=== PATIENT | male | born 2000 | race Caucasian/White ===

== ENCOUNTER 2021-08-01 19:10 | Emergency (ER) | payer OTHER, SELFPAY ==
--- NOTE | ~2021-08-01 | CT_ITS ---
EXAMINATION: CT abdomen pelvis wo con DATE: 08/01/2021 19:47 INDICATION: Right flank pain TECHNIQUE: Computed tomography (CT) of the abdomen and pelvis was performed without intravenous contr ast. Automated exposure control and iterative reconstruction technique were employed. Exam dose: 654 .96 mGy-cm total exam DLP. COMPARISON: None. FINDINGS: Minimal dependent atelectasis, right lower lobe. Normal heart size. No pericardial or pleur al effusion. The liver, gallbladder, bile ducts, spleen, pancreas, pancreatic duct and adrenal glands are unremark able. No renal mass lesion is evident. There is an approximate 4 x 6 mm proximal right ureteral calculus with mild to moderate right proxima l hydroureteronephrosis. Normal caliber of the abdominal aorta. No intraperitoneal or retroperitoneal or pelvic mass lesion or adenopathy or ascites. The urinary bladder and prostate gland are unremarkable. Normal appendix. No bowel obstruction or intraperitoneal free air. Included skeletal structures are unremarkable. IMPRESSION: 4 x 6 mm obstructing proximal right ureteral calculus with mild to moderate proximal rig ht hydroureteronephrosis Reviewed, dictated and finalized at [facility]. Reviewed, dictated and finalized at [facility]. IMPRESSION: 4 x 6 mm obstructing proximal right ureteral calculus with mild to moderate proximal right hydroureteronephrosis
[2021-08-01 19:09] VITALS: BP 137/86; PULSE 73; RESP 16; TEMP 36.8; O2SAT 97
--- NOTE | 2021-08-01 19:29 | ED.BACK ---
HPI - Back Pain/Injury General Chief Complaint: Back Pain/Injury Stated Complaint: BACK PAIN Time Seen by Provider: 08/01/21 19:17 History of Present Illness HPI Narrative: Pt developed severe right flank pain about 2 o'clock this afternoon it improved briefly after taking motrin but then recurred and he became sweaty and nauseated and pain was worse. Pt denies urinary symptoms and there is no radiation of pain. Related Data Allergies Allergy/AdvReac Type Severity Reaction Status Date / Time No Known Allergies Allergy Verified 08/01/21 19:16 Review of Systems Review of Systems: All systems reviewed & are unremarkable except as noted in HPI and below Exam Const: General: cooperative and healthy appearing Nutritional Appearance: average body habitus Orientation/consciousness: patient oriented x3 Neck: Neck: normal visual inspection, full ROM and no meningeal signs Resp: Effort & Inspection: normal respiratory effort Auscultation: clear to auscultation bilaterally Cardio: Rate: regular rate Rhythm: regular rhythm GI: Inspection: normal to inspection GI Palp: Yes Soft to palpation Auscultation: normal bowel sounds : General: Yes CVA tenderness (right) Back/Spine/Pelvis: Back: CVA tenderness Skin: General skin exam: normal color Lesions: no lesions Rashes: no rashes Neuro: General: patient oriented x3 and no focal motor deficits Extrem: General: normal to inspection and no clubbing, cyanosis or edema Psych: Appearance: grossly normal Mental Status: mental status grossly normal Affect: normal affect Attitude: cooperative Course Course Emergency Course: Pt feels better and wants to try going home. d/w dr anguiano, urology said ok to discharge and follow up. would hold on any antibiotics because WBC in urine likely inflammatory. Vital Signs Vital signs: Vital Signs Temperature 98.2 F 08/01/21 19:09 Pulse Rate 73 08/01/21 19:09 Respiratory Rate 16 08/01/21 19:09 Blood Pressure 137/86 08/01/21 19:09 Pulse Oximetry 97 08/01/21 19:09 Oxygen Delivery Room Air 08/01/21 19:09 Temperature 98.2 F 08/01/21 19:09 Pulse Rate 94 08/01/21 21:33 Respiratory Rate 16 08/01/21 21:33 Blood Pressure 123/96 H 08/01/21 21:33 Pulse Oximetry 97 06/09/22 21:33 Oxygen Delivery Room Air 08/01/21 19:09 MDM - Back Pain/Injury Lab Data Result diagrams: 08/01/21 19:31 08/01/21 19:31 Labs: Lab Results 08/01/21 08/01/21 08/01/21 Range/Units 19:31 19:31 19:55 WBC 9.2 (4.5-10.0) K/mm3 RBC 5.21 (4.2-5.4) M/mm3 Hgb 16.0 H (12.0-15.0) g/dL Hct 47.1 H (37.0-47.0) % MCV 90.4 (80-100) fl MCH 30.7 (26-34) pg MCHC 34.0 (32-36) g/dl RDW 12.7 (11.5-14.5) % Plt Count 211 (150-375) k/mm3 MPV 9.9 (7.4-10.4) fl Immature Gran % (Auto) 0.4 (0-0.5) % Neut % (Auto) 73.6 H (45.5-73.1) % Lymph % (Auto) 17.3 L (18.3-44.2) % Lewis % (Auto) 7.7 (2.6-8.5) % Eos % (Auto) 0.5 (0-4.4) % Baso % (Auto) 0.5 (0.2-1.2) % Lymph # (Auto) 1.60 (0.9-3.2) K/mm3 Lewis # (Auto) 0.7 H (0.1-0.6) K/mm3 Eos # (Auto) 0.1 (0-0.3) K/mm3 Baso # (Auto) 0.1 (0.0-0.1) K/mm3 Abs Immat Gran (auto) 0.04 H (0.00-0.031) K/mm3 Absolute Neuts (auto) 6.8 H (1.3-6.7) K/mm3 Absolute Nucleated RBC 0.0 (0.0-0.012) K/mm3 Nucleated RBC % 0.0 (0.0-0.2) % Sodium 141 (137-145) mmol/L Potassium 4.1 (3.4-5.0) mmol/L Chloride 105 (98-107) mmol/L Carbon Dioxide 27 (22-30) mmol/L Anion Gap 9 (8-16) mmol/L BUN 18 (9-20) mg/dL Creatinine 1.10 (0.7-1.3) mg/dL Estim Creat Clear Calc 121 ml/min Estimated GFR > 60 (59 - ) Glucose 111 H (65-110) mg/dL Calcium 8.9 (8.4-10.2) mg/dL Total Bilirubin 0.5 (0.2-1.3) mg/dL AST 34 (17-59) U/L ALT 41 (6-50) U/L Alkaline Phosphatase 82 (38-126) U/L Total Protein 7.0 (6.3-8.2) g/dL Al
[2021-08-01 19:38] LABS: Basophils Absolute Auto 0.1 K/mm3 (0.0-0.1); Basophils Percent Auto 0.5 % (0.2-1.2); Eosinophils Absolute Auto 0.1 K/mm3 (0-0.3); Eosinophils Percent Auto 0.5 % (0-4.4); Hematocrit 47.1 % (37.0-47.0); Immature Granulocyte Absolute 0.04 K/mm3 (0.00-0.031); Immature Granulocyte Percent A 0.4 % (0-0.5); Lymphocytes Percent Auto 17.3 % (18.3-44.2); Mean Corpuscular Hemoglobin 30.7 pg (26-34); Mean Corpuscular Volume 90.4 fl (80-100); Mean Platelet Volume 9.9 fl (7.4-10.4); Monocytes Absolute Auto 0.7 K/mm3 (0.1-0.6); Monocytes Percent Auto 7.7 % (2.6-8.5); Neutrophils Absolute Auto 6.8 K/mm3 (1.3-6.7); Neutrophils Percent Auto 73.6 % (45.5-73.1); Platelet Count Result 211 k/mm3 (150-375); Red Blood Count 5.21 M/mm3 (4.2-5.4); Red Cell Distribution Width 12.7 % (11.5-14.5); White Blood Count 9.2 K/mm3 (4.5-10.0)
[2021-08-01 19:48] LABS: Alanine Aminotransferase 41 U/L (6-50); Albumin Level 4.9 g/dL (3.5-5.1); Alkaline Phosphatase 82 U/L (38-126); Anion Gap 9 mmol/L (8-16); Aspartate Amino Transferase 34 U/L (17-59); Bilirubin,Total 0.5 mg/dL (0.2-1.3); Blood Urea Nitrogen 18 mg/dL (9-20); Calcium 8.9 mg/dL (8.4-10.2); Carbon Dioxide 27 mmol/L (22-30); Chloride 105 mmol/L (98-107); Estimated CRCL calculation 121 ml/min; Estimated Glomerular Filt Rate > 60; Glucose 111 mg/dL (65-110); Potassium 4.1 mmol/L (3.4-5.0); Sodium 141 mmol/L (137-145)
[2021-08-01] MEDS: SODIUM CHLORIDE 0.9% IV 1,000 ML 999 ML IV CONT (19:50)
--- NOTE | 2021-08-01 19:50 | PC.NURSE ---
Pt denies pain or nausea at this time. Refuses medication.
[2021-08-01 20:01] LABS: Appearance Urine Clear (Clear); Bilirubin Urine 1+ (Negative); Blood Urine 3+ (Negative); Color Urine Yellow (Yellow); Glucose Urine UA Negative (Negative); Ketones Urine Trace mg/dL (Negative); Leukocyte Esterase Ur Negative LEU/UL (Negative); Nitrate Urine Negative (Negative); Protein Urine 2+ mg/dL (Negative); Specific Grav Ur >= 1.030 (1.001-1.035); pH Urine 6.5 (5.0-9.0)
[2021-08-01 20:09] LABS: Mucus Urine Heavy /lpf; RBC Urine >75 /hpf (0-2); WBC Urine 31-50 /hpf
[2021-08-01 20:10] LABS: Add Urine Microscopic? YES
[2021-08-01] MEDS: fentaNYL CITRATE INJ (*CRX) 100 MCG/2 ML VIAL 50 MCG IV PUSH (20:19)
[2021-08-01] MEDS: ONDANSETRON INJ 4 MG/2 ML VIAL IV PUSH (20:20)
[2021-08-01 21:33] VITALS: BP 123/96; PULSE 94; RESP 16; O2SAT 97
== END 2021-08-01 21:34 | disposition home or self-care (01) ==
PROVIDERS: Emergency Provider Emergency Medicine
DX: N20.1 Calculus of ureter (principal)
CPT/HCPCS: 36415; 74176; 80053; 81001; 85025; 87086; 96361; 96374; 96375; 99284; J2405; J3010; J7030

== ENCOUNTER 2021-08-05 15:04 | Emergency (ER) | payer OTHER, SELFPAY ==
--- NOTE | ~2021-08-05 | CT_ITS ---
EXAMINATION: CT abdomen pelvis wo con DATE: 08/05/2021 15:42 INDICATION: flank pain TECHNIQUE: Computed tomography (CT) of the abdomen and pelvis was performed without intravenous contr ast. Automated exposure control and iterative reconstruction technique were employed. The dose-length product was 248.09 mGy-cm. COMPARISON: 08/01/2021 FINDINGS: Lower thorax: Unremarkable Liver: Normal. Biliary/Gallbladder: Gallbladder is normal. No bile duct dilation. Pancreas: No mass or duct dilation. Spleen: Normal. Adrenals:No mass. Kidneys: No mass or stone. Mild right hydronephrosis. GI tract: No small or large bowel dilation. Normal appendix. Mesentery/Peritoneum: No ascites, mass, or free air. Retroperitoneum: No mass. Pelvis: Previously detected 4 x 6 mm stone has advanced to the distal right ureter, just at the entra nce of the right UVJ. Soft Tissues: Soft tissues and body wall unremarkable. Bones: No acute osseous finding. IMPRESSION: 4 x 6 cm right distal ureteral stone causing mild obstructive uropathy. Reviewed, dictated and finalized at [facility].
--- NOTE | ~2021-08-05 | XR_ITS ---
EXAM: XR abdomen/kub 1V DATE: 08/05/2021 15:47 HISTORY: kidney stone, RT SIDED FLANK PAIN, HX OF KIDNEY STONES . COMPARISON: CT abdomen pelvis, same date. FINDINGS: Clear lung bases. Normal bowel gas pattern. No organomegaly. 5 mm right pelvic calcificati on corresponding to the 4 x 6 mm distal right ureteral stone in the concurrent CT. Regional bones and soft tissues normal for age. IMPRESSION: Distal right ureteral stone. Reviewed, dictated and finalized at [facility].
[2021-08-05 15:07] VITALS: BP 139/80; PULSE 82; RESP 16; TEMP 36.3; O2SAT 99
[2021-08-05] MEDS: HYDROmorphone HCL INJ (*CRX) 1 MG/ML SYR 0.5 MG IV PUSH (15:32)
[2021-08-05] MEDS: ONDANSETRON INJ 4 MG/2 ML VIAL IV PUSH (15:32)
[2021-08-05 15:37] LABS: Basophils Absolute Auto 0.1 K/mm3 (0.0-0.1); Basophils Percent Auto 0.4 % (0.2-1.2); Eosinophils Percent Auto 0.1 % (0-4.4); Hematocrit 50.3 % (42.0-52.0); Hemoglobin 17.3 g/dL (14.0-18.0); Immature Granulocyte Absolute 0.08 K/mm3 (0.00-0.031); Immature Granulocyte Percent A 0.6 % (0-0.5); Lymphocytes Absolute Auto 1.33 K/mm3 (0.9-3.2); Lymphocytes Percent Auto 9.4 % (18.3-44.2); Mean Corpuscular HGB Conc 34.4 g/dl (32-36); Mean Corpuscular Hemoglobin 30.7 pg (26-34); Mean Corpuscular Volume 89.3 fl (80-100); Mean Platelet Volume 10.4 fl (7.4-10.4); Monocytes Absolute Auto 0.7 K/mm3 (0.1-0.6); Monocytes Percent Auto 4.6 % (2.6-8.5); Neutrophils Absolute Auto 12.1 K/mm3 (1.3-6.7); Neutrophils Percent Auto 84.9 % (45.5-73.1); Platelet Count Result 258 k/mm3 (150-375); Red Blood Count 5.63 M/mm3 (4.6-6.20); Red Cell Distribution Width 12.5 % (11.5-14.5); White Blood Count 14.2 K/mm3 (4.5-10.0)
--- NOTE | 2021-08-05 15:37 | ED.MALEGU ---
HPI - Male Genitourinary General Chief complaint: Urogenital-Male Stated complaint: kidney stone Time Seen by Provider: 08/05/21 15:12 History of Present Illness HPI Narrative: Pt was seen here in ED 08/01 and diagnosed with proximal right ureteral stone. Pt discharged on meds. Pt said he had a little pain 08/02 but then developed more sever pain at noon today. Pt said pain is radiating into right groin. Pt tried to take pain meds and vomited them up. Related Data Allergies Allergy/AdvReac Type Severity Reaction Status Date / Time No Known Allergies Allergy Verified 08/01/21 19:16 Review of Systems Review of Systems: All systems reviewed & are unremarkable except as noted in HPI and below Exam Const: General: healthy appearing and no acute distress Nutritional Appearance: well nourished Limitations: no limitations Neck: Neck: normal visual inspection, no lymphadenopathy and no meningeal signs Resp: Effort & Inspection: normal respiratory effort Auscultation: clear to auscultation bilaterally Cardio: Rate: regular rate Rhythm: regular rhythm GI: GI Palp: Yes Soft to palpation Auscultation: normal bowel sounds : General: Yes CVA tenderness on the right Back/Spine/Pelvis: Back: CVA tenderness Skin: General skin exam: normal color Rashes: no rashes Wounds: no wounds Neuro: General: patient oriented x3, moves all extremities, no meningeal signs and no focal motor deficits Gait exam (Neuro): Normal gait present Extrem: General: normal to inspection and no clubbing, cyanosis or edema Psych: Mental Status: mental status grossly normal Affect: normal affect Attitude: cooperative Course Course Emergency Course: pt feels much better would like to go home. has follow up with urology Wednesday 08/09 Vital Signs Vital signs: Vital Signs Temperature 97.4 F L 08/05/21 15:07 Pulse Rate 82 08/05/21 15:07 Respiratory Rate 16 08/05/21 15:07 Blood Pressure 139/80 08/05/21 15:07 Pulse Oximetry 99 08/05/21 15:07 Temperature 97.4 F L 08/05/21 15:07 Pulse Rate 82 08/05/21 15:07 Respiratory Rate 16 08/05/21 15:07 Blood Pressure 139/80 08/05/21 15:07 Pulse Oximetry 99 08/05/21 15:07 MDM - Male Genitourinary Lab Data Result diagrams: 08/05/21 15:31 08/05/21 15:31 Labs: Lab Results 08/05/21 08/05/21 08/05/21 Range/Units 15:31 15:31 15:31 WBC 14.2 H (4.5-10.0) K/mm3 RBC 5.63 (4.6-6.20) M/mm3 Hgb 17.3 (14.0-18.0) g/dL Hct 50.3 (42.0-52.0) % MCV 89.3 (80-100) fl MCH 30.7 (26-34) pg MCHC 34.4 (32-36) g/dl RDW 12.5 (11.5-14.5) % Plt Count 258 (150-375) k/mm3 MPV 10.4 (7.4-10.4) fl Immature Gran % (Auto) 0.6 H (0-0.5) % Neut % (Auto) 84.9 H (45.5-73.1) % Lymph % (Auto) 9.4 L (18.3-44.2) % Colbert % (Auto) 4.6 (2.6-8.5) % Eos % (Auto) 0.1 (0-4.4) % Baso % (Auto) 0.4 (0.2-1.2) % Lymph # (Auto) 1.33 (0.9-3.2) K/mm3 Colbert # (Auto) 0.7 H (0.1-0.6) K/mm3 Eos # (Auto) 0.0 (0-0.3) K/mm3 Baso # (Auto) 0.1 (0.0-0.1) K/mm3 Abs Immat Gran (auto) 0.08 H (0.00-0.031) K/mm3 Absolute Neuts (auto) 12.1 H (1.3-6.7) K/mm3 Absolute Nucleated RBC 0.0 (0.0-0.012) K/mm3 Nucleated RBC % 0.0 (0.0-0.2) % PT 13.9 (11.1-14.7) Seconds INR 1.1 APTT 25.0 (22.3-36.8) SECONDS Sodium 142 (137-145) mmol/L Potassium 3.9 (3.4-5.0) mmol/L Chloride 105 (98-107) mmol/L Carbon Dioxide 24 (22-30) mmol/L Anion Gap 13 (8-16) mmol/L BUN 17 (9-20) mg/dL Creatinine 1.20 (0.7-1.3) mg/dL Estim Creat Clear Calc 111 ml/min Estimated GFR > 60 (59 - ) Glucose 111 H (65-110) mg/dL Calcium 9.1 (8.4-10.2) mg/dL Total Bilirubin 0.8 (0.2-1.3) mg/dL AST 28 (17-59) U/L ALT 41 (6-50) U/L Alkaline Phosphatase 89 (38-126) U/L Total Protein 8.0 (6.3-8.2) g/dL Albumin 5.3 H (3.5-5.1) g/dL U
[2021-08-05 15:48] LABS: Alanine Aminotransferase 41 U/L (6-50); Albumin Level 5.3 g/dL (3.5-5.1); Alkaline Phosphatase 89 U/L (38-126); Anion Gap 13 mmol/L (8-16); Aspartate Amino Transferase 28 U/L (17-59); Bilirubin,Total 0.8 mg/dL (0.2-1.3); Blood Urea Nitrogen 17 mg/dL (9-20); Calcium 9.1 mg/dL (8.4-10.2); Carbon Dioxide 24 mmol/L (22-30); Chloride 105 mmol/L (98-107); Estimated CRCL calculation 111 ml/min; Estimated Glomerular Filt Rate > 60; Glucose 111 mg/dL (65-110); Potassium 3.9 mmol/L (3.4-5.0); Sodium 142 mmol/L (137-145)
[2021-08-05 15:49] LABS: INR 1.1; Prothrombin Time 13.9 Seconds (11.1-14.7)
[2021-08-05 16:34] LABS: Appearance Urine Clear (Clear); Bilirubin Urine 1+ (Negative); Blood Urine 2+ (Negative); Color Urine Yellow (Yellow); Glucose Urine UA Negative (Negative); Ketones Urine 2+ mg/dL (Negative); Leukocyte Esterase Ur Negative LEU/UL (Negative); Nitrate Urine Negative (Negative); Protein Urine 1+ mg/dL (Negative); Specific Grav Ur 1.025 (1.001-1.035); Urobilinogen Urine 0.2 mg/dL (<2.0)
[2021-08-05 16:44] LABS: Mucus Urine Moderate /lpf; RBC Urine 51-75 /hpf (0-2); Squamous Epithelial Cell Urine Rare /hpf (Few)
[2021-08-05 16:45] LABS: Add Urine Microscopic? YES
[2021-08-05 17:38] VITALS: BP 140/80; PULSE 80; RESP 16; O2SAT 100
== END 2021-08-05 17:39 | disposition home or self-care (01) ==
PROVIDERS: Emergency Provider Emergency Medicine
DX: N20.1 Calculus of ureter (principal); R10.9 Unspecified abdominal pain
CPT/HCPCS: 36415; 74018; 74176; 80053; 81001; 85025; 85610; 85730; 96374; 96375; 99284; J1170; J2405